=== PATIENT | female | born 1970 | race Two or more races ===

== ENCOUNTER 2018-09-03 13:50 | Emergency (ER) | payer OTHER ==
[~2018-09-03] VITALS: Ht 157.5 cm; Wt 71.8 kg
[2018-09-03 14:09] VITALS: BP 143/74; Ht 157.5 cm; Wt 71.8 kg
== END 2018-09-03 17:05 | disposition home or self-care (01) ==
LOC: ED 13:50
DX: J06.9 Acute upper respiratory infection, unspecified (principal)
CPT/HCPCS: J7620; Q0092